=== PATIENT | male | born 1975 ===

== ENCOUNTER 2017-11-05 18:18 | Outpatient (CLI) | payer OTHER | END 2017-11-05 18:26 | disposition home or self-care (01) | LOC: RAD 18:18 | DX: M54.5 Low back pain (principal); Z13.220 Encounter for screening for lipoid disorders; Z13.89 Encounter for screening for other disorder; Z12.5 Encounter for screening for malignant neoplasm of prostate ==

== ENCOUNTER 2023-10-13 10:45 | Outpatient (CLI) | payer OTHER | END 2023-10-13 10:54 | disposition home or self-care (01) | LOC: MRI 10:45 | PROVIDERS: ATTEND Specialist | DX: M25.562 Pain in left knee (principal) | CPT/HCPCS: 73721 ==